=== PATIENT | male | born 1990 | race Caucasian/White ===

== ENCOUNTER 2021-04-03 14:42 | Emergency (ER) | payer MEDICAID, SELFPAY ==
[2021-04-03 14:49] VITALS: BP 140/79; PULSE 18; RESP 18; O2SAT 95; BMI 30.9
--- NOTE | 2021-04-03 16:18 | ED_ITS ---
HPI - Back Pain/Injury General Chief Complaint: Back Pain/Injury Stated Complaint: BACK PAIN Time Seen by Provider: 04/03/21 16:18 Source: patient Mode of arrival: ambulatory History of Present Illness HPI Narrative: 30-year-old male with no significant past medical history presenting to the ED complaining right-sided low back pain radiating down right lower extremity times a couple days. 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 Denies known trauma/direct injury or fall, numbness, tingling, weakness, urinary incontinence/retention, fever MD elicited complaint: back pain and back injury Related Data Previous Rx's Medication Instructions Recorded acetaminophen [Tylenol Extra 500 mg PO Q6H PRN #20 tab 04/03/21 Strength] cyclobenzaprine 5 mg PO Q8H PRN 5 Days #14 tab 04/03/21 lidocaine [Lidoderm] 1 patch TOPICAL DAILY PRN #30 ea 04/03/21 MDD remove after 12 hours naproxen 500 mg PO BID PRN 10 Days #20 tab 04/03/21 Allergies Allergy/AdvReac Type Severity Reaction Status Date / Time No Known Allergies Allergy Verified 04/03/21 16:20 Review of Systems Review of Systems: Constitutional: No Fever, No Chills Cardiovascular: No Chest Pain, No SOB Respiratory: No Cough Genitourinary: No Urinary Incontinence/retention Musculoskeletal: + joint pain, No Myalgias, No Joint Swelling Skin: No Skin Lesions, No rash Neuro: No Weakness, No Numbness, No Paresthesias Yes all other systems are reviewed and are negative Neurologic: Denies Sensory deficit (Neuro) [facility] Past Medical History Attestation statement: The following information was validated with the patient. Social History Social History Advance Directives: No Advance Directives Information Provided: No Physical Exam Vital Signs: Vital Signs: Last Vital Signs Pulse 81 04/03/21 16:21 Resp 18 04/03/21 16:21 BP 140/79 H 04/03/21 14:49 Pulse Ox 95 04/03/21 14:49 Body Mass Index 30.9 Const: General: cooperative, healthy appearing and no acute distress Orientation/consciousness: patient oriented x3 Limitations: no limitations HENMT: Head: Yes normal to inspection Ears: hearing grossly normal bilaterally General nose exam: Normal external nose present Face and sinus: Yes normal facial exam Eyes: General: appearance normal, both eyes and all related structures EOM: EOMs intact bilaterally Neck: Other: No midline cervical spinous tenderness/step-off Neck: Yes normal visual inspection Resp: Effort & Inspection: normal respiratory effort Cardio: Rate: regular rate GI: Inspection: Yes normal to inspection Palpation (GI): Soft to palpation and nontender Back/Spine/Pelvis: Other: No midline thoracic/lumbar spinous tenderness/step- offs or deformity. + right-sided lower lumbar MSK tenderness to palpation Skin: Rashes: no rashes Wounds: no wounds Neuro: Other: No saddle anesthesia General: patient oriented x3, gait normal, tone normal and moves all extremities Gait exam (Neuro): Normal gait present Motor exam (neuro): 5/5 motor strength present throughout Sensory Exam: No Sensory deficit (Neuro) Extrem: General: Yes normal to inspection MDM - Back Pain/Injury MDM Narrative Medical decision making narrative: 30-year-old male with no significant past medical history presenting to the ED complaining right-sided low back pain radiating down right lower extremity times a couple days. On exam VSS, NAD, well appearing, no midline spinous tenderness throughout, no red flag symptoms. Likely MSK pain/strain with sciatica. Low concern for cauda equina, cord compression or renal stone Discharge Plan Discharge Clinical Impression: Lumbar radiculopathy Sciatica Qualifiers: Laterality: right Qualified Code(s): M54.31 - Sciatica, right side Patient Disposition: Home, Self-Care Instructions: Acute Low Back Pain (ED) Additional Instructions: Your pain is likely musculoskeletal Flexeril is a muscle relaxer, take at night as it makes you drowsy, do not drive, drink alcohol, or operate machinery while taking it Naproxen as an anti-inflammatory / pain medication, take with food Lidoderm patches are numbing patches, apply to painful area In addition take Tylenol at home If symptoms persist or worsen, pain becomes unbearable, you developed urinary retention or incontinence, or weakness return to the ED Prescriptions: New acetaminophen [Tylenol Extra Strength] 500 mg tablet 500 mg PO Q6H PRN (Reason: pain or fever) Qty: 20 RF: 0 lidocaine [Lidoderm] 5 % adhesive patch,medicated 1 patch topical DAILY MDD remove after 12 hours PRN (Reason: pain) Qty: 30 RF: 0 naproxen 500 mg tablet 500 mg PO BID PRN (Reason: pain) 10 Days Qty: 20 RF: 0 cyclobenzaprine 5 mg tablet 5 mg PO Q8H PRN (Reason: pain (scale score 7-10)) 5 Days Qty: 14 RF: 0 Referrals: Physician,None [Primary Care Provider] - 2 days Stand Alone Forms: Work/School Release
[2021-04-03 16:21] VITALS: PULSE 81; RESP 18
== END 2021-04-03 16:28 | disposition home or self-care (01) ==
PROVIDERS: Emergency Provider Emergency Medicine
DX: M54.16 Radiculopathy, lumbar region (principal); M54.41 Lumbago with sciatica, right side
CPT/HCPCS: 99283; 99284

== ENCOUNTER 2021-05-16 08:52 | Emergency (ER) | payer MEDICAID, SELFPAY ==
[2021-05-16 09:07] VITALS: BP 109/71; PULSE 92; RESP 16; TEMP 36.9; O2SAT 97; BMI 31.0
--- NOTE | 2021-05-16 09:56 | ED.GENADULT ---
HPI - General Adult General Chief complaint: Skin/Abscess/Foreign Body Stated complaint: poison vickey Time Seen by Provider: 05/16/21 09:56 Source: patient Mode of arrival: ambulatory History of Present Illness HPI narrative: 30-year-old male with past medical history of asthma, hepatitis-C, seizures, substance abuse in remission, presenting to the ED complaining of poison vickey to bilateral upper and lower extremities times 3-4 days. Reports works in [employer] and symptoms exacerbated when in the sun/sweating. Has tried topical creams without relief. Denies fever, chills, SOB, new medications/exposures/travel Onset (ago): day(s) Related Data Previous Rx's Medication Instructions Recorded acetaminophen [Tylenol Extra 500 mg PO Q6H PRN #20 tab 04/03/21 Strength] cyclobenzaprine 5 mg PO Q8H PRN 5 Days #14 tab 04/03/21 lidocaine [Lidoderm] 1 patch TOPICAL DAILY PRN #30 ea 04/03/21 MDD remove after 12 hours naproxen 500 mg PO BID PRN 10 Days #20 tab 04/03/21 Allergies Allergy/AdvReac Type Severity Reaction Status Date / Time No Known Allergies Allergy Verified 04/03/21 16:20 Review of Systems Review of Systems: Constitutional: No Fever, No Chills ENT/Mouth: No Ear Pain, No sore throat, No Swallowing Difficulty Cardiovascular: No Chest Pain, No SOB Respiratory: No Cough, No Sputum, No Wheezing Musculoskeletal: No joint pain, No Myalgias, No Joint Swelling Skin: No Skin Lesions, + rash Yes all other systems are reviewed and are negative PMFSH Past Medical History Attestation statement: The following information was validated with the patient. Medical History (Updated 05/16/21 @ 09:11 by Cathy Cardoso) Asthma Hepatitis C virus Seizures Substance abuse in remission Surgical History (Updated 05/16/21 @ 09:11 by Cathy Cardoso) Hx of tonsillectomy Social History Social History Advance Directives: No Advance Directives Information Provided: No Physical Exam Vital Signs: Vital Signs: Last Vital Signs Temp 98.4 F 05/16/21 09:07 Pulse 92 05/16/21 09:07 Resp 16 05/16/21 09:07 BP 109/71 05/16/21 09:07 Pulse Ox 97 05/16/21 09:07 Body Mass Index 31.0 Const: General: cooperative, healthy appearing and no acute distress Orientation/consciousness: patient oriented x3 Limitations: no limitations HENMT: Head: Yes normal to inspection Ears: hearing grossly normal bilaterally General nose exam: Normal external nose present Face and sinus: Yes normal facial exam Eyes: General: appearance normal, both eyes and all related structures EOM: EOMs intact bilaterally Neck: Neck: Yes normal visual inspection and Yes no meningeal signs Resp: Effort & Inspection: normal respiratory effort and no respiratory distress Cardio: Rate: regular rate Skin: Other: + poison vickey noted to bilateral forearms and shins Wounds: no wounds Neuro: General: patient oriented x3 and no meningeal signs Gait exam (Neuro): Normal gait present Extrem: General: Yes normal to inspection Medical Decision Making [facility] Narrative Medical decision making narrative: 30-year-old male with past medical history of asthma, hepatitis-C, seizures, substance abuse in remission, presenting to the ED complaining of poison vickey to bilateral upper and lower extremities times 3-4 days. On exam vital signs stable, NAD, poison vickey noted to bilateral forearms and shins. Will treat with p.o. prednisone, topical corticosteroid, Benadryl and Zyrtec Discharge Plan Discharge Prescriptions: No Action acetaminophen [Tylenol Extra Strength] 500 mg tablet 500 mg PO Q6H PRN (Reason: pain or fever) Qty: 20 RF: 0 lidocaine [Lidoderm] 5 % adhesive patch,medicated 1 patch topical DAILY MDD remove after 12 hours PRN (Reason: pain) Qty: 30 RF: 0 naproxen 500 mg tablet 500 mg PO BID PRN (Reason: pain) 10 Days Qty: 20 RF: 0 cyclobenzaprine 5 mg tablet 5 mg PO Q8H PRN (Reason: pain (scale score 7-10)) 5 Days Qty: 14 RF: 0
== END 2021-05-16 10:12 | disposition home or self-care (01) ==
PROVIDERS: Emergency Provider Emergency Medicine
DX: L23.7 Allergic contact dermatitis due to plants, except food (principal)
CPT/HCPCS: 99283

== ENCOUNTER → 2021-05-21 10:50 | Outpatient (BNVA) | payer OTHER, SELFPAY | PROVIDERS: Visit Provider Physician Assistant Medical | DX: S51.012A Laceration without foreign body of left elbow, initial encounter (principal); X58.XXXA Exposure to other specified factors, initial encounter | CPT/HCPCS: 12004; 99204 ==

== ENCOUNTER → 2021-05-23 14:34 | Outpatient (BNVA) | payer OTHER, SELFPAY | PROVIDERS: Visit Provider Physician Assistant | DX: S51.012A Laceration without foreign body of left elbow, initial encounter (principal); X50.3XXA Overexertion from repetitive movements, initial encounter | CPT/HCPCS: 99213 ==

== ENCOUNTER → 2021-05-28 15:17 | Outpatient (BNVA) | payer OTHER, SELFPAY | PROVIDERS: Visit Provider Physician Assistant | DX: Z48.02 Encounter for removal of sutures (principal); S51.012D Laceration without foreign body of left elbow, subsequent encounter; X58.XXXD Exposure to other specified factors, subsequent encounter | CPT/HCPCS: 99212; 99213 ==

== ENCOUNTER → 2021-05-31 13:23 | Outpatient (BNVA) | payer OTHER, SELFPAY | PROVIDERS: Visit Provider Internal Medicine | DX: T81.30XD Disruption of wound, unspecified, subsequent encounter (principal); S51.012D Laceration without foreign body of left elbow, subsequent encounter; X58.XXXD Exposure to other specified factors, subsequent encounter | CPT/HCPCS: 99213 ==

== ENCOUNTER → 2021-06-04 14:44 | Outpatient (BNVA) | payer OTHER, SELFPAY | PROVIDERS: Visit Provider Internal Medicine | DX: S51.012D Laceration without foreign body of left elbow, subsequent encounter (principal); L08.9 Local infection of the skin and subcutaneous tissue, unspecified; X58.XXXD Exposure to other specified factors, subsequent encounter | CPT/HCPCS: 99213 ==

== ENCOUNTER 2021-07-10 13:38 | Emergency (ER) | payer OTHER, MEDICAID, SELFPAY ==
[2021-07-10 14:15] VITALS: BP 125/76; PULSE 91; RESP 16; TEMP 36.6; O2SAT 97; BMI 31.0
--- NOTE | 2021-07-10 14:43 | ED_ITS ---
HPI - Eye Problem General Chief complaint: Eye Problems Stated complaint: EYE ISSUE ITCHY Time Seen by Provider: 07/10/21 14:40 Source: patient Mode of arrival: ambulatory Limitations: no limitations History of Present Illness chief complaint: eye redness Onset (ago): day(s) (Three days ago) Onset description: awoke with symptoms Duration: constant and progressively worsening Location: left eye Eye Symptoms: burning, redness, itching and discharge Place: home (Although currently lives in a sober house) Mechanism: none Severity: mild If Pain, Quality: burning Associated symptoms: none Treatments Prior to Arrival: none Related Data Previous Rx's Medication Instructions Recorded acetaminophen 500 mg tablet 500 mg PO Q6H PRN #20 tab 04/03/21 (Tylenol Extra Strength) cyclobenzaprine 5 mg tablet 5 mg PO Q8H PRN 5 Days #14 tab 04/03/21 lidocaine 5 % topical patch 1 patch TOPICAL DAILY PRN #30 ea 04/03/21 (Lidoderm) MDD remove after 12 hours naproxen 500 mg tablet 500 mg PO BID PRN 10 Days #20 tab 04/03/21 cetirizine 10 mg capsule (Zyrtec) 10 mg PO DAILY PRN #14 cap 05/16/21 diphenhydramine HCl 25 mg capsule 25 mg PO Q6H PRN #14 cap 05/16/21 (Benadryl) hydrocortisone 1 % topical 1 appl TOPICAL BID PRN #453.6 g 05/16/21 ointment (Anti-Itch (hydrocortisone)) prednisone 20 mg tablet 40 mg PO DAILY 5 Days #10 tab 05/16/21 erythromycin 5 mg/gram (0.5 %) eye 0.5 inch OPHTHALMIC (EYE) QID 7 07/10/21 ointment Days #3.5 g Allergies Allergy/AdvReac Type Severity Reaction Status Date / Time No Known Allergies Allergy Verified 04/03/21 16:20 Review of Systems Review of Systems: Constitutional : No fevers, no chills, No changes in activity, No lethargy, No recent prior head injury, No agitation, No increased fussiness ENT/Mouth : No Ear Pain, No Nasal discharge/drainage Eyes: Positive left eye redness/purulent discharge/itchiness, No Vision changes/blurry/decreased vision, No Eye Pain, No Swelling, No Foreign Body, No Photophobia, no eyelid edema, no contact lens uses, no recent welding, no bleeding Cardiovascular : No Chest Pain, No SOB Respiratory : No Cough Gastrointestinal : No Nausea, No Vomiting, No abdominal Pain Genitourinary : No Dysuria, No Urinary Frequency, No Urinary Incontinence, No Urgency, No Flank Pain Musculoskeletal : No joint pain, No neck stiffness, No back pain/injury Skin : No lacerations Neuro : No unsteady gait, No Paresthesias, No Loss of Consciousness, No altered mental status, No dizziness, No Headache Denies past medical history of HIV, recent trauma, coagulopathy, recent spinal/ epidural procedure, new medication, URI symptoms, close contacts with similar symptoms, tick bite, or known CO2 exposure. Yes all other systems are reviewed and are negative [facility] Past Medical History Attestation statement: The following information was validated with the patient. Medical History Asthma Hepatitis C virus Seizures Substance abuse in remission Surgical History Hx of tonsillectomy Social History Social History Advance Directives: Yes Advance Directives Information Provided: No Advance Directives on File: No Physical Exam Vital Signs: Vital Signs: Last Vital Signs Temp 97.8 F 07/10/21 14:15 Pulse 91 07/10/21 14:15 Resp 16 07/10/21 14:15 BP 125/76 07/10/21 14:15 Pulse Ox 97 07/10/21 14:15 Body Mass Index 31.0 vital signs have been reviewed as normal and appeared to be correct. Blood pressure normal. Heart rate normal. Respiration rate normal. Temperature normal. Oxygen saturation normal. Appearance: Alert. Oriented X3. No acute distress. Head: Normal external exam. Normocephalic. Atraumatic. Eyes: PERRLA. EOMI. Left conjunctiva erythematous with matting consistent with bacterial conjunctivitis. Right conjunctiva is starting to become erythematous although no discharge is noted at this time. Cornea are normal. Funduscopic exam within normal limits. Sclera normal. Eyelids normal. No papilledema noted. Anterior chamber normal. No photophobia noted. ENT: EAC normal. TM's Normal. Pharynx normal. Uvula midline. Moist mucous membranes. Neck: Normal inspection. Neck supple. FROM. No adenopathy. No meningeal signs. CVS: Normal heart rate and rhythm. Respiratory: No respiratory distress. Painless inspiration. Back: Full range of motion noted. Skin: Skin warm and dry. Normal skin color. Normal skin turgor. No rashes/lesions/lacerations noted. Extremities: Extremities exhibit normal range of motion. Extremities nontender. Neuro: Oriented X 3. No motor deficit. No sensory deficit. Reflexes normal. MDM - Eye Problem Medical Records Attestation: I reviewed the patient's medical records. Discharge Plan Discharge Clinical Impression: Bacterial conjunctivitis Patient Disposition: Home, Self-Care Instructions: Conjunctivitis (ED) Prescriptions: New erythromycin 5 mg/gram (0.5 %) ointment 0.5 inch ophthalmic (eye) QID 7 Days Qty: 3.5 RF: 0 No Action acetaminophen [Tylenol Extra Strength] 500 mg tablet 500 mg PO Q6H PRN (Reason: pain or fever) Qty: 20 RF: 0 lidocaine [Lidoderm] 5 % adhesive patch,medicated 1 patch topical DAILY MDD remove after 12 hours PRN (Reason: pain) Qty: 30 RF: 0 naproxen 500 mg tablet 500 mg PO BID PRN (Reason: pain) 10 Days Qty: 20 RF: 0 cyclobenzaprine 5 mg tablet 5 mg PO Q8H PRN (Reason: pain (scale score 7-10)) 5 Days Qty: 14 RF: 0 prednisone 20 mg tablet 40 mg PO DAILY 5 Days Qty: 10 RF: 0 hydrocortisone [Anti-Itch (HC)] 1 % ointment 1 appl topical BID PRN (Reason: skin irritation) Qty: 453.6 RF: 0 Zyrtec 10 mg capsule 10 mg PO DAILY PRN (Reason: allergy symptoms) Qty: 14 RF: 0 diphenhydramine HCl [Benadryl] 25 mg capsule 25 mg PO Q6H PRN (Reason: allergic reaction) Qty: 14 RF: 0 Referrals: Physician,Unknown [Primary Care Provider] - 2 days (your pcp) Stand Alone Forms: Work/School Release Print Language: [place]
[2021-07-10] MEDS: Erythromycin Base 0.5% Oph Oin 1 GM TUBE 1 CM EYE-LEFT (14:57)
== END 2021-07-10 15:04 | disposition home or self-care (01) ==
PROVIDERS: Emergency Provider Internal Medicine
DX: H10.9 Unspecified conjunctivitis (principal); Z79.899 Other long term (current) drug therapy
CPT/HCPCS: 99283